=== PATIENT | male | born 1990 | race African-American/Black ===

== ENCOUNTER 2020-01-29 11:30 | Emergency (ER) | payer SELFPAY ==
[~2020-01-29] VITALS: Ht 180.3 cm; Wt 111.1 kg
[2020-01-29] MEDS ORDERED: NORCO 5-325 TA1 EACH PO (14:17)
== END 2020-01-29 14:38 | disposition home or self-care (01) ==
LOC: ED 11:30
DX: S62.91XA Unspecified fracture of right hand, initial encounter for closed fracture (principal); X58.XXXA Exposure to other specified factors, initial encounter; Y93.89 Activity, other specified; Y92.89 Other specified places as the place of occurrence of the external cause; Y99.8 Other external cause status

== ENCOUNTER 2021-09-08 14:01 | Emergency (ER) | payer OTHER ==
[~2021-09-08 14:01] MED LIST: NORCO 5-325 TA1 EACH PO
== END 2021-09-08 15:26 | disposition home or self-care (01) ==
LOC: ED 14:01
DX: S93.402A Sprain of unspecified ligament of left ankle, initial encounter (principal); F17.200 Nicotine dependence, unspecified, uncomplicated; W17.2XXA Fall into hole, initial encounter; Y93.89 Activity, other specified; Y92.89 Other specified places as the place of occurrence of the external cause; Y99.8 Other external cause status

== ENCOUNTER 2022-09-20 10:48 | Emergency (ER) | payer OTHER ==
[~2022-09-20] VITALS: Ht 180.3 cm; Wt 1.8 kg
[2022-09-20] MEDS ORDERED: TOBRADEX 0.1%-0.5 ML OPH (12:19)
== END 2022-09-20 12:30 | disposition home or self-care (01) ==
LOC: ED 10:48
DX: S05.02XA Injury of conjunctiva and corneal abrasion without foreign body, left eye, initial encounter (principal); S05.01XA Injury of conjunctiva and corneal abrasion without foreign body, right eye, initial encounter; X58.XXXA Exposure to other specified factors, initial encounter; Y93.89 Activity, other specified; Y92.89 Other specified places as the place of occurrence of the external cause; Y99.8 Other external cause status